=== PATIENT | female | born 1975 | race Caucasian/White ===

== ENCOUNTER 2018-09-07 09:17 | Emergency (ER) | payer MEDICAID ==
[2018-09-07] MEDS: KETOROLAC 30 MG INJ IM (10:21)
== END 2018-09-07 10:31 | disposition home or self-care (01) ==
LOC: E/R 09:17
DX: R07.9 Chest pain, unspecified (principal); R20.2 Paresthesia of skin
CPT/HCPCS: 93005; 96372; 99284-25